=== PATIENT | female | born 1975 | race Caucasian/White ===

== ENCOUNTER 2022-10-13 18:41 | Emergency (ER) | payer OTHER ==
[~2022-10-13] VITALS: Ht 157.5 cm; Wt 63.6 kg
[2022-10-13] MEDS ORDERED: AMOX1TAB16 PO (20:03)
[2022-10-13] MEDS ORDERED: IBUP-1492 PO (20:24)
[2022-10-13 20:25] VITALS: BP 118/74
== END 2022-10-13 20:26 | disposition home or self-care (01) ==
LOC: EMS 18:45
DX: L73.9 Follicular disorder, unspecified (principal); H02.843 Edema of right eye, unspecified eyelid; F17.210 Nicotine dependence, cigarettes, uncomplicated
CPT/HCPCS: 99283; Z7502

== ENCOUNTER 2024-03-31 16:56 | Emergency (ER) | payer OTHER ==
[~2024-03-31] VITALS: Ht 157.5 cm; Wt 72.7 kg
[~2024-03-31 16:56] MED LIST: AMOX-457 PO; IBUP-1492 PO
[2024-03-31 17:08] VITALS: TEMP 99.4
[2024-03-31 20:05] LABS: BASOPHILS % (AUTO) 0.7 % (0.0-2.0); EOSINOPHILS % (AUTO) 1.5 % (1.0-6.0); HEMOGLOBIN 10.9 g/dL (12.0-16.0); LYMPHOCYTES # (AUTO) 2.2 K/uL (1.0-4.8); MEAN CORPUSCULAR HEMOGLOBIN 26.9 pg (26.0-34.0); MEAN CORPUSCULAR HGB CONC 32.1 G/dL (31.0-37.0); MEAN CORPUSCULAR VOLUME 84 fL (80-100); MONOCYTES # (AUTO) 0.6 K/uL (0.1-1.0); MONOCYTES % (AUTO) 6.6 % (2.0-9.0); NEUTROPHILS # (AUTO) 5.8 K/uL (1.8-7.7); NEUTROPHILS % (AUTO) 66.2 % (40.0-70.0); PLATELET COUNT (AUTO) 288 K/uL (150-450); RED BLOOD CELL COUNT(AUTO) 4.07 MIL/uL (4.00-5.20); RED CELL DISTRIBUTION WIDTH 15.3 % (11.5-14.5); WHITE BLOOD COUNT (AUTO) 8.7 K/uL (4.5-11.0)
[2024-03-31 20:20] LABS: ANION GAP 12 mmol/L (8-16); CALCIUM, TOTAL 8.5 mg/dL (8.8-10.5); CARBON DIOXIDE 26 mmol/L (22-29); CHLORIDE 102 mmol/L (98-107); CREATININE 0.66 mg/dL (0.60-1.30); GLOMERULAR FILTR. RATE CALC > 60 mL/min (>60); GLUCOSE,RANDOM 86 mg/dL (70-110); POTASSIUM 4.1 mmol/L (3.5-5.1); SODIUM SERUM 140 mmol/L (136-145); UREA NITROGEN, BLOOD 10 mg/dL (7-18)
[2024-03-31 20:29] LABS: TROPONIN I-HIGH SENSITIVITY 18 ng/L (<51)
[2024-03-31 21:25] VITALS: BP 115/65; PULSE 81; RESP 15; O2SAT 97
[2024-03-31] MEDS: TraMADol HCL 50 MG TABLET PO ONE (22:23)
[2024-03-31] MEDS: MORPHINE SULFATE 2 MG/ML SYRINGE IVP ONE (22:31)
[2024-03-31] MEDS: ACETAMINOPHEN 500 MG TABLET PO ONE ×2 (22:43→23:56)
[2024-03-31] MEDS ORDERED: IBUP-1554 PO (23:05)
[2024-03-31] MEDS ORDERED: DIPH50CA37 PO (23:05)
[2024-03-31] MEDS ORDERED: ACET-66 PO (23:05)
[2024-03-31] MEDS: IBUPROFEN 600 MG TABLET PO ONE (23:56)
[2024-03-31] MEDS: DiphenhydrAMINE HCL 25 MG CAPSULE PO ONE (23:56)
== END 2024-03-31 23:58 | disposition home or self-care (01) ==
LOC: EMS 16:56
DX: S20.161A Insect bite (nonvenomous) of breast, right breast, initial encounter (principal); R07.89 Other chest pain; F17.210 Nicotine dependence, cigarettes, uncomplicated; W57.XXXA Bitten or stung by nonvenomous insect and other nonvenomous arthropods, initial encounter; Y93.89 Activity, other specified; Y92.89 Other specified places as the place of occurrence of the external cause; Y99.8 Other external cause status
CPT/HCPCS: 71045; 80048; 84484; 85025; 93005; 99285; J2270; 36415-L1; 36415-TC